=== PATIENT | female | born 1970 | race Caucasian/White ===

== ENCOUNTER 2022-04-21 19:14 | Emergency (ER) | payer OTHER ==
[~2022-04-21] VITALS: Ht 170.2 cm; Wt 62.6 kg
[2022-04-21 19:48] LABS: BASOPHILS % (AUTO) 0.6 % (0.0-5.0); EOSINOPHILS % (AUTO) 0.6 % (0.0-8.0); HEMATOCRIT 50.7 % (36-48); LYMPHOCYTES % (AUTO) 35.5 % (21.0-51.0); MEAN CORPUSCULAR HEMOGLOBIN 31.2 pg (27.0-33.0); MEAN CORPUSCULAR HGB CONC 35.1 g/dL (32.0-36.0); MEAN CORPUSCULAR VOLUME 88.9 fL (79-99); PLATELET COUNT (AUTO) 203 K/uL (130-400); RED CELL DISTRIBUTION WIDTH 12.4 % (11.0-15.5); WHITE BLOOD COUNT (AUTO) 6.8 K/uL (4.8-10.8)
[2022-04-21 20:00] LABS: CREATININE 0.9 mg/dL (0.5-1.5); POTASSIUM 3.8 mmol/L (3.5-5.1)
[2022-04-21 20:09] LABS: ALBUMIN 3.7 g/dL (3.5-5.0); TOTAL PROTEIN, SERUM 7.2 g/dL (6.0-8.3)
[2022-04-21 21:20] VITALS: BP 119/71
== END 2022-04-21 21:21 | disposition home or self-care (01) ==
LOC: EDH 19:14
DX: R20.8 Other disturbances of skin sensation (principal); F41.9 Anxiety disorder, unspecified; E11.65 Type 2 diabetes mellitus with hyperglycemia; F32.A Depression, unspecified; F17.200 Nicotine dependence, unspecified, uncomplicated; Z90.89 Acquired absence of other organs; Z98.890 Other specified postprocedural states; Z88.2 Allergy status to sulfonamides; Z88.1 Allergy status to other antibiotic agents
CPT/HCPCS: 36415; 70450; 71045; 80053; 84484; 85025; 93005

== ENCOUNTER 2025-04-09 18:44 | Emergency (ER) | payer OTHER ==
[~2025-04-09] VITALS: Ht 170.2 cm; Wt 56.7 kg
--- NOTE | 2025-04-09 19:03 | EKG ---
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
[2025-04-09 19:16] LABS: IMMATURE GRANULOCYTE ABSOLUTE 0.01 K/uL (0-1); NUCLEATED RED BLOOD CELLS 0.0 % (0.0-0.19); PLATELET COUNT (AUTO) 325 K/uL (130-400); RED BLOOD CELL COUNT(AUTO) 5.03 MIL/uL (4.00-5.50); RED CELL DISTRIBUTION WIDTH 13.2 % (11.0-15.5); WHITE BLOOD COUNT (AUTO) 7.7 K/uL (4.8-10.8)
[2025-04-09 19:25] LABS: CREATININE 0.7 mg/dL (0.5-1.0); GLOMERULAR FILTR. RATE CALC 103.0 mL/min (>90); GLUCOSE,RANDOM 133.0 mg/dL (70-105); SODIUM SERUM 140.0 mmol/L (136-145); UREA NITROGEN, BLOOD 17.0 mg/dL (7-18)
[2025-04-09 19:35] LABS: ASPARTATE AMINOTRANSFERASE 27.0 U/L (10-37); TOTAL PROTEIN, SERUM 7.6 g/dL (6.0-8.3)
--- NOTE | 2025-04-09 20:38 | ERN ---
ED Note History of Present Illness Stated Complaint: DIZZINESS X2 DAYS Chief Complaint: Dizzy/Light Headed Time Seen by MD: 18:45 Time Seen by Midlevel: 18:50 Dictation: 54-year-old female with a history of diabetes, and anxiety coming in with complaints of headache, dizziness, generalized weakness, palpitations and epigastric pain for the last three days. Patient states this feels like her panic attacks however states her panic attacks usually resolve and this has been lingering. Patient also states he just started on Januvia Allergies: Coded Allergies: sulfamethoxazole (Unverified Allergy, Unknown, 04/21/22) trimethoprim (Unverified Allergy, Unknown, 04/21/22) Past Medical History Past Medical History: Anxiety, Bipolar, Depression, Diabetes-Type II Surgical History: Appendectomy, Hysterectomy Surgical History Other: LEFT COLLAR BONE SX; PYLORIC STENOSIS Social History: Smokers Review of System Dictation Constitutional: Negative for fever,chills, and weight loss Eyes: Negative for injury, pain,redness, and discharge ENT: Negative for injury,pain or swelling Cardiovascular: Negative for chest pain, palpitations, and edema Respiratory: Negative for shortness of breath, cough, and wheezing, Abdomen/GI: Negative for abdominal pain, nausea, vomiting, diarrhea, and constipation Back: Negative for injury and pain : Negative for injury, bleeding and discharge MS/Extremity: Negative for injury and deformity Skin: Negative for rash, and discoloration Neuro: complaining of headaches, weakness, numbness, tingling, and seizure Psych: Negative for suicide ideation, homicidal ideation, and hallucinations Review of Systems: was completed Initial Vital Sign VS Vital Signs Date Time Temp Pulse Resp B/P (MAP) Pulse Ox O2 Delivery O2 Flow Rate FiO2 04/09/25 18:45 98.4 100 18 138/81 97 Room Air 0 04/09/25 20:37 21 Physical Exam Dictation General: awake, alert, NAD Head/Face: Normocephalic, atraumatic Eyes: PERRL, EOMI, vision at baseline ENT: oral cavity clear, TMs clear, no signs of infection Neck: Trachea midline, supple, no nuchal rigidity Cardiovascular: RRR, normal S1/S2, No MRGs, no JVD Respiratory: CTAB, no respiratory distress, No rales or wheezes Abdomen: Soft, non-tender, non-distended, normal bowel sounds, no guarding or rebound. Skin: Warm, dry, normal turgor, no rash MS/Extremity: Pulses equal, no cyanosis, neurovascular intact, FROM Neuro: COAx4, GCS 15, strength 5/5, CN 2-12 intact, normal cerebellar exam, normal gait, Psych: Normal behavior, mood, and affect normal Results (Laboratory/Radiology) Laboratory/Radiology Laboratory Tests Test 04/09/25 19:08 White Blood Count 7.7 K/uL (4.8-10.8) Red Blood Count 5.03 MIL/uL (4.00-5.50) Hemoglobin 15.3 g/dL (12.0-16.0) Hematocrit 45.4 % (36-48) Mean Corpuscular Volume 90.3 fL (79-99) Mean Corpuscular Hemoglobin 30.4 pg (27.0-33.0) Mean Corpuscular Hemoglobin Concent 33.7 g/dL (32.0-36.0) Red Cell Distribution Width 13.2 % (11.0-15.5) Platelet Count 325 K/uL (130-400) Mean Platelet Volume 8.3 fL (7.5-10.5) Immature Granulocyte % (Auto) 0.1 % (0-1) Neutrophils (%) (Auto) 47.0 % (40.0-77.0) Lymphocytes (%) (Auto) 41.3 % (21.0-51.0) Monocytes (%) (Auto) 9.6 % (3.0-13.0) Eosinophils (%) (Auto) 1.3 % (0.0-8.0) Basophils (%) (Auto) 0.7 % (0.0-5.0) Neutrophils # (Auto) 3.6 K/uL (1.8-7.7) Lymphocytes # (Auto) 3.2 K/uL (1.0-4.8) Monocytes # (Auto) 0.7 K/uL (0.1-1.0) Eosinophils # (Auto) 0.10 K/uL (0.00-0.70) Basophils # (Auto) 0.05 K/uL (0.00-0.20) Absolute Immature Granulocyte (auto 0.01 K/uL (0-1) Nucleated Red Blood Cells 0.0 % (0.0-0.19) Sodium Level 140 mmol/L (136-145) Potassium Level 3.9 mmol/L (3.5-5.1) Chloride Level 102 mmol/L (101-111) Carbon Dioxide Level 26 mmol/L (21-32) Blood Urea Nitrogen 17 mg/dL (7-18) Creatinine 0.7 mg/dL (0.5-1.0) Glomerular Filtration Rate Calc 103 mL/min (>90) Random Glucose 133 mg/dL (70-105) H Total Calcium 9.8 mg/dL (8.5-10.1) Total Bilirubin 0.3 mg/dL (0.2-1.0) Direct Bilirubin 0.1 mg/dL (0.0-0.3) Aspartate Amino Transf (AST/SGOT) 27 U/L (10-37) Alanine Aminotransferase (ALT/SGPT) 39 U/L (12-78) Alkaline Phosphatase 92 U/L (50-136) Troponin I High Sensitivity 4 ng/L (4-50) Total Protein 7.6 g/dL (6.0-8.3) Albumin 4.2 g/dL (3.5-5.0) Lipase 54 U/L (16-77) Labs Reviewed?: Yes X-RAY Comment: [place] [address] [address] IMAGING REPORT Signed PATIENT: ZOE DUKE MR#: [id number] : 1970 SEX: F AGE: 54 LOCATION: [facility] ORDER 52 STATUS: [facility] REPORT#: [id number] SERVICE 49 REASON: pain ORDERING PHYSICIAN: PRINCE ADORNO NP PROCEDURE: CXR1VW - CHEST 1VW EXAM: CR Chest, 1 View. CLINICAL HISTORY: pain COMPARISON: Radiograph dated December 19, 2010 FINDINGS: LUNGS: There is no mass, infiltrate, or acute pulmonary abnormality. PLEURAL SPACES: No pleural effusion or pneumothorax. MEDIASTINUM: Cardiac size and mediastinal contours within normal limits. BONES: No aggressive appearing osseous lesion seen. Hardware at the ventral aspect of the left clavicle. IMPRESSION: No acute cardiopulmonary pathology is evident. /[place] DICTATED BY: SHARYN GONZALEZ Jr., MD DATE: 04/09/252206 ELECTRONICALLY SIGNED BY: SHARYN GONZALEZ Jr., MD DATE: 04/09/252206 CT Scan Comment: [place] [address] [place], [place] [id number] IMAGING REPORT Signed PATIENT: ZOE DUKE MR#: [id number] : 1970 SEX: F AGE: 54 LOCATION: [facility] ORDER 52 STATUS: [facility] REPORT#: [id number] SERVICE 49 REASON: dizziness with MCDOWELL ORDERING PHYSICIAN: PRINCE ADORNO NP PROCEDURE: HEAD WO - CT HEAD/BRAIN W/O CONTRAST EXAM: CT Head Without IV contrast. CLINICAL HISTORY: dizziness with MCDOWELL TECHNIQUE: Axial computed tomography images of the head/brain without intravenous contrast. COMPARISON: None provided. FINDINGS: BRAIN: No evidence of acute hemorrhage. No mass lesion. No CT evidence for acute territorial infarct. No midline shift or extra-axial collections. VENTRICLES: No hydrocephalus. ORBITS: The orbits are unremarkable. SINUSES AND MASTOIDS: The paranasal sinuses and mastoid air cells are clear. BONES: No fracture. SOFT TISSUES: Unremarkable. IMPRESSION: No acute intracranial abnormality. /[place] DICTATED BY: SHARYN GONZALEZ Jr., MD DATE: 04/09/252150 ELECTRONICALLY SIGNED BY: SHARYN GONZALEZ Jr., MD DATE: 04/09/252150 ED Course ED Course Orders Procedure Category Date Status Time Cbc With Differential LAB 04/09/25 Complete 18:50 Basic Metabolic Panel LAB 04/09/25 Complete 18:50 12 Lead Ekg Tracing- EKG 04/09/25 Complete Technical 18:50 Troponin I High LAB 04/09/25 Complete Sensitivity 18:50 Lipase LAB 04/09/25 Complete 18:50 Hepatic Function Panel LAB 04/09/25 Complete 18:50 Chest 1vw RAD 04/09/25 Resulted 18:50 Ct Head/Brain W/O CT 04/09/25 Resulted Contrast 18:50 0.9%Nacl 1000ml (Ns PHA 04/09/25 Complete 1000ml) 18:50 Meclizine Hcl 25 Mg PHA 04/09/25 Complete (Antivert 25 Mg) 18:50 Current Medications Medications (Trade) Dose Ordered Sig/Adam Route PRN Reason Start Time Stop Time Status Last Admin Dose Admin Meclizine HCl (ANTIvert 25 mg) 25 mg ONCE STAT PO 04/09/25 18:50 04/09/25 18:55 DC 04/09/25 20:42 Sodium Chloride 1,000 ml @ 1,000 mls/hr Q1H STAT IV 04/09/25 18:50 04/09/25 19:49 DC 04/09/25 20:42 Vital Signs Date Time Temp Pulse Resp B/P (MAP) Pulse Ox O2 Delivery O2 Flow Rate FiO2 04/09/25 20:37 98.4 100 18 138/81 97 Room Air* 0 21 04/09/25 18:45 98.4 100 18 138/81 97 Room Air 0 Medical Decision Making MDM MDM: 54-year-old female with a history of diabetes, and anxiety coming in with complaints of headache, dizziness, generalized weakness, palpitations and epigastric pain for the last three days. Patient states this feels like her panic attacks however states her panic attacks usually resolve and this has been lingering. Patient also states he just started on Januvia. Blood work unremarkable. CT of the head shows no acute finding. Just respiratory shows no acute finding. EKGs within normal range. After fluids and medication patient is shows she feels much better. Educated to follow up with the PCP in 1-2 days. Differential diagnosis:anxiety, migriane, dehydration, electrolyte abnormality. Rationale: Tests considered and ordered secondary to shared decision making include: Previous outside records reviewed: Old ER visits. Risk of complication and/or morbidity or mortality of patient management: None Medications-Per medication reconciliation Need for hospitalization: Patient does not meet criteria for hospitalization. Need for emergency major/minor surgery: No There are no social concerns with this patient. Prescription drug management Prescriptions will include symptomatic care Patient's prior external medical records from other ER visits were reviewed by me as indicated. Prior testing and results from previous visits were reviewed. Prior tests were taken into account with medical decision making and resource utilization, independent historian/historians were used to obtain complete medical history. I independently interpreted the test that were performed, results were reviewed by me and considered findings on radiology if ordered. Medical management and examination interpretation discussions were had by me with other qualified healthcare professionals as indicated for the patient's care. DX & DISP Disposition: Discharge Departure Impression: Primary Impression: Anxiety Additional Impression: Head ache Condition: Stable Referrals: SHELTON VELAZQUEZ M.D. (PCP) Time of Disposition: 21:27 I have reviewed the case, and I agree with, Diagnosis and Plan PRINCE ADORNO NP Apr 09, 2025 20:38
[2025-04-09] MEDS: 0.9%NACL 1000ML 1,000 ML IV STA (20:42)
--- NOTE | 2025-04-09 20:52 | HMCIMG ---
EXAM: CT Head Without IV contrast. CLINICAL HISTORY: dizziness with MCDOWELL TECHNIQUE: Axial computed tomography images of the head/brain without intravenous contrast. COMPARISON: None provided. FINDINGS: BRAIN: No evidence of acute hemorrhage. No mass lesion. No CT evidence for acute territorial infarct. No midline shift or extra-axial collections. VENTRICLES: No hydrocephalus. ORBITS: The orbits are unremarkable. SINUSES AND MASTOIDS: The paranasal sinuses and mastoid air cells are clear. BONES: No fracture. SOFT TISSUES: Unremarkable. IMPRESSION: No acute intracranial abnormality. /[place]
--- NOTE | 2025-04-09 21:08 | HMCIMG ---
EXAM: CR Chest, 1 View. CLINICAL HISTORY: pain COMPARISON: Radiograph dated December 19, 2010 FINDINGS: LUNGS: There is no mass, infiltrate, or acute pulmonary abnormality. PLEURAL SPACES: No pleural effusion or pneumothorax. MEDIASTINUM: Cardiac size and mediastinal contours within normal limits. BONES: No aggressive appearing osseous lesion seen. Hardware at the ventral aspect of the left clavicle. IMPRESSION: No acute cardiopulmonary pathology is evident. /[place]
[2025-04-09 21:32] VITALS: BP 124/74; PULSE 88; RESP 18; TEMP 98.4; O2SAT 97
== END 2025-04-09 21:33 | disposition home or self-care (01) ==
LOC: EDH 18:44
DX: F41.9 Anxiety disorder, unspecified (principal); R51.9 Headache, unspecified; E11.9 Type 2 diabetes mellitus without complications; F17.200 Nicotine dependence, unspecified, uncomplicated; F31.9 Bipolar disorder, unspecified; Z88.1 Allergy status to other antibiotic agents; Z88.2 Allergy status to sulfonamides; Z90.49 Acquired absence of other specified parts of digestive tract; Z90.710 Acquired absence of both cervix and uterus
CPT/HCPCS: 99285; 70450; 71045; 80076; 84484; 80048; 83690; 85025; 36415; 93005; J7030

== ENCOUNTER → 2025-04-09 | Emergency (ER) | payer OTHER ==
[~2025-04-09] VITALS: Ht 170.2 cm; Wt 56.7 kg
[2025-04-09 22:43] VITALS: BP 127/79; PULSE 89; RESP 20; TEMP 97.9
--- NOTE | 2025-04-10 | NUR ---
PT CAME TO WINDOW AND INFORMED TRIAGE NURSE THAT SHE WAS LEAVING. PT TOLD BY TRIAGE NURSE THAT IF SHE NEEDED TO COME BACK, TO DO SO. PT NODDED IN AGREEMENT.
== END ==
LOC: EDH 22:41
DX: R10.9 Unspecified abdominal pain (principal); Z53.21 Procedure and treatment not carried out due to patient leaving prior to being seen by health care provider